=== PATIENT | male | born 2000 | race Caucasian/White ===

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

== ENCOUNTER 2020-03-18 00:44 | Emergency (ER) | payer OTHER ==
[~2020-03-18] VITALS: Ht 182.8 cm; Wt 59.0 kg
[2020-03-18 03:23] LABS: HEMATOCRIT 41.3 % (42.0-52.0); MEAN CELL VOLUME 89.6 fl (80.0-94.0); MEAN CORPUSCULAR HGB 30.4 pg (27.0-31.0); MEAN CORPUSCULAR HGB CONC 33.9 g/dl (33.0-37.0); MEAN PLATELET VOLUME 9.6 fl (9.6-12.3); PLATELET COUNT AUTOMATED 251 10*3/uL (130-400); RED BLOOD COUNT 4.61 10*6/uL (4.50-5.90); RED CELL DISTRI WIDTH 13.2 % (0-14.5); WHITE BLOOD COUNT 25.8 10*3/uL (4.8-10.8)
[2020-03-18 03:32] LABS: CLARITY CLEAR (CLEAR); COLOR YELLOW (YELLOW)
[2020-03-18 03:33] LABS: BILIRUBIN NEGATIVE (NEGATIVE); BLOOD TRACE-LYSED (NEGATIVE); GLUCOSE NEGATIVE (NEGATIVE); KETONE NEGATIVE (NEGATIVE); LEUKO ESTERASE NEGATIVE (NEGATIVE); NITRITE NEGATIVE (NEGATIVE); PH 7.5 (5.0-9.0); SPECIFIC GRAVITY 1.005 (1.005-1.030); UROBILINOGEN 0.2 E.U./dl (0.2-1.0)
[2020-03-18 03:35] LABS: BUN 9 mg/dl (7-24); CHLORIDE 109 mmol/L (98-107); POTASSIUM 3.6 mmol/L (3.5-5.1); SODIUM 142 mmol/L (136-145)
[2020-03-18 03:39] LABS: RBC 0-2 rbc/hpf (0-2); WBC 0-2 wbc/hpf (0-5)
[2020-03-18 03:42] LABS: PLATELET SUFFICIENCY NORMAL (NORMAL); TOTAL CELLS COUNTED 100 #CELLS
[2020-03-18] MEDS ORDERED: Motrin,Rufen800 MG PO ×2 (05:43→05:45)
[2020-03-18] MEDS ORDERED: NORCO 5-325 TA1 EACH PO (05:49)
== END 2020-03-18 05:57 | disposition home or self-care (01) ==
LOC: ED 00:44
PROVIDERS: Emergency Medicine Emergency Medical Services
DX: S32.592A Other specified fracture of left pubis, initial encounter for closed fracture (principal); S32.512A Fracture of superior rim of left pubis, initial encounter for closed fracture; F17.200 Nicotine dependence, unspecified, uncomplicated; V89.2XXA Person injured in unspecified motor-vehicle accident, traffic, initial encounter; Y93.89 Activity, other specified; Y92.89 Other specified places as the place of occurrence of the external cause; Y99.8 Other external cause status

== ENCOUNTER 2023-01-13 21:15 | Emergency (ER) | payer OTHER ==
[~2023-01-13] VITALS: Ht 180.3 cm; Wt 77.1 kg
[~2023-01-13 21:15] MED LIST changes: +NORCO 5-325 TA1 EACH PO
== END 2023-01-14 05:50 | disposition short-term general hospital (02) ==
LOC: ED 21:15
DX: S02.0XXA Fracture of vault of skull, initial encounter for closed fracture (principal); S01.81XA Laceration without foreign body of other part of head, initial encounter; G93.89 Other specified disorders of brain; W27.0XXA Contact with workbench tool, initial encounter; Y93.89 Activity, other specified; Y92.89 Other specified places as the place of occurrence of the external cause; Y99.8 Other external cause status; Z88.8 Allergy status to other drugs, medicaments and biological substances

== ENCOUNTER 2024-05-28 00:04 | Emergency (ER) | payer OTHER | END 2024-05-28 01:40 | disposition home or self-care (01) | LOC: ED 00:04 | DX: R04.0 Epistaxis (principal); F90.9 Attention-deficit hyperactivity disorder, unspecified type ==

== ENCOUNTER 2025-02-04 00:39 | Emergency (ER) | payer OTHER ==
[2025-02-04] MEDS ORDERED: Ondansetron Hydrochloride 4 MG/2 ML VIAL IV ONE (02:30)
[2025-02-04] MEDS ORDERED: MORPHINE Sulfate 2 MG/ML SYR IV ONE (02:30)
[2025-02-04] MEDS ORDERED: ceFAZolin sodium 1 GM in SYRINGE INFUSION 10 ML IV ONE (02:30)
[2025-02-04] MEDS ORDERED: ceFAZolin sodium 1 GM VIAL ONE (02:48)
== END 2025-02-04 03:32 | disposition short-term general hospital (02) ==
LOC: ED 00:39
DX: S02.609A Fracture of mandible, unspecified, initial encounter for closed fracture (principal); S01.81XA Laceration without foreign body of other part of head, initial encounter; F15.20 Other stimulant dependence, uncomplicated; Z79.899 Other long term (current) drug therapy; W18.39XA Other fall on same level, initial encounter; Y93.89 Activity, other specified; Y92.89 Other specified places as the place of occurrence of the external cause; Y99.8 Other external cause status

== ENCOUNTER 2025-03-26 19:16 | Emergency (ER) | payer OTHER ==
[~2025-03-26] VITALS: Ht 182.8 cm; Wt 59.0 kg
[2025-03-26 20:17] LABS: BASO # 0.0 10*3/uL (0.0-0.1); BASO % 0.2 % (0.0-1.0); EOS # 0.3 10*3/uL (0.0-0.4); EOS % 2.8 % (1.0-4.0); MEAN CELL VOLUME 89.4 fl (80.0-94.0); MEAN CORPUSCULAR HGB 29.4 pg (27.0-31.0); MEAN PLATELET VOLUME 8.4 fl (9.6-12.3); MONO # 0.8 10*3/uL (0.1-1.0); MONO % 8.5 % (3.0-9.0); NEUT # 6.4 10*3/uL (2.3-7.9); NEUT % 67.6 % (47.0-73.0); NUCLEATED RED BLOOD CELL 0.0 % (0.0-0.0); NUCLEATED RED BLOOD CELL 0.0 10*3/uL (0.0-0.0); PLATELET COUNT AUTOMATED 329 10*3/uL (130-400); RED CELL DISTRI WIDTH 14.1 % (0-14.5)
== END 2025-03-26 21:28 | disposition home or self-care (01) ==
LOC: ED 19:16
PROVIDERS: Internal Medicine
DX: R04.0 Epistaxis (principal)